=== PATIENT | male | born 1990 | race Caucasian/White ===

== ENCOUNTER 2018-01-13 03:32 | Emergency (ER) | payer MEDICAID ==
[~2018-01-13] VITALS: Ht 170.2 cm; Wt 73.0 kg
[2018-01-13] MEDS ORDERED: ONDANSETRON HCL 4MG/2ML VIAL IV STA (05:02)
[2018-01-13] MEDS ORDERED: MORPHINE SULFATE 4 MG/ML CPJ (NOT FOR IM USE) IV STA (05:02)
[2018-01-13] MEDS ORDERED: SODIUM CHLORIDE 0.9% 1,000 ML IV ONE (05:02)
[2018-01-13 05:31] LABS: BASOPHILS % 0.3 % (0.0-2.0); EOSINOPHILS % 2.1 % (0.0-5.0); HEMATOCRIT. 46.1 % (42.0-52.0); HEMOGLOBIN. 15.9 g/dL (14.0-18.0); LYMPHOCYTES % 17.7 % (20.0-50.0); MEAN CORPUSCULAR HEMOGLOBIN 30.4 pg (28.0-32.0); MEAN CORPUSCULAR VOLUME 88.2 fL (80.0-94.0); MEAN PLATELET VOLUME 10.8 fl (7.4-10.4); NEUTROPHILS % 71.9 % (40.0-76.0); PLATELET 236 x1000/uL (130-400); RED BLOOD CELL COUNT 5.23 mill/uL (4.7-6.1); RED CELL DISTRIBUTION WIDTH 14.4 % (11.6-14.6)
[2018-01-13 05:37] LABS: INR 0.9; PROTHROMBIN TIME 9.7 sec (9.4-11.6)
[2018-01-13 05:38] LABS: CHLORIDE 104 mEq/L (98-107)
[2018-01-13] MEDS ORDERED: IOHEXOL-300 100 ML BOTTLE ONE (07:13)
[2018-01-13 08:09] LABS: CLARITY URINE CLEAR (CLEAR); COLOR URINE YELLOW (YELLOW); KETONES URINE NEGATIVE (NEGATIVE); LEUKOCYTE ESTERASE URINE NEGATIVE (NEGATIVE); NITRITE URINE NEGATIVE (NEGATIVE); OCCULT BLOOD URINE NEGATIVE (NEGATIVE); PH URINE 5.5 (4.5-8.0); PROTEIN URINE NEGATIVE (NEGATIVE); SPECIFIC GRAVITY URINE 1.032 (1.005-1.030); UROBILINOGEN URINE 0.2 E.U./dL (0.2-1.0)
[2018-01-13 08:46] VITALS: BP 124/67
== END 2018-01-13 08:49 | disposition home or self-care (01) ==
LOC: ER 03:32
DX: R10.31 Right lower quadrant pain (principal); R11.2 Nausea with vomiting, unspecified; R19.7 Diarrhea, unspecified; F17.200 Nicotine dependence, unspecified, uncomplicated
CPT/HCPCS: 36415; 74177; 80053; 81003; 83690; 85025; 85610; 96361; 96374; 96375; 99285; J2270; J2405; J7030; Q9967; Z7610